=== PATIENT | male | born 1965 | race Caucasian/White ===

== ENCOUNTER 2018-11-21 11:30 | Day surgery (SDC) | payer OTHER ==
--- NOTE | 2018-11-21 08:50 | HP ---
DATE OF SURGERY: 11/21/2018 HISTORY OF PRESENT ILLNESS: The patient is a 53 year-old with no prior abdominal surgery, increasing bulge umbilical area, increased pain worse with picking up things. He desires repair of his hernia. PAST MEDICAL HISTORY: He denies any chronic illnesses. PAST SURGICAL HISTORY: Pin for broken finger in the past. MEDICATIONS: None. ALLERGIES: NKDA. FAMILY HISTORY: Negative. SOCIAL HISTORY: No smoking. Social alcohol use denies abuse. REVIEW OF SYSTEMS: Twelve systems reviewed. No chest pain or palpitations other systems negative or noncontributory as above and per preadmission questionnaire. PHYSICAL EXAMINATION: GENERAL: No acute distress. HEENT: Sclerae nonicteric. NECK: No JVD. CHEST: Equal excursion, nonlabored breathing. CVS: Regular rate and rhythm. ABDOMEN: Soft. No peritoneal signs. He does have what seems to be an incarcerated umbilical area hernia that needs repair. EXTREMITIES: No significant edema. NEURO: Alert, oriented, moving extremities symmetrically. No gross motor deficits noted. RECTAL: Deferred timed to endoscopy exam. IMPRESSION: Incarcerated umbilical area hernia in need of repair. Risks and benefits explained in detail but not limited to bleeding or infection, risk of bleeding, infection, risk of hematoma or seroma formation, risk of ingrown hair or suture reaction, risk if the mesh became infected likely would need to be removed, general of anesthesia, deep venous thrombosis, pulmonary embolism, pneumonia, remote risk of fracture or failure possibly creating issue with the viscera or other structures possibly requiring other procedures, ongoing morbidity, general risk of aches, pains, burning or numbness possibly fdc or chronic in nature. Overall risk of hernia recurrence. Small risk of scar formation, adhesion or obstruction down the road but not limited to. He understands all the above but not limited to, will proceed with open repair of incarcerated umbilical hernia repair with mesh as an outpatient.
[~2018-11-21 11:30] MED LIST: Lactated Ringers 1,000 ML IV ONE; Lactated Ringers 1,000 ML IV SCH; Sensorcaine 0.25% 10 ML ONE
[2018-11-21] MEDS ORDERED: TORAdol 30 mg Injection IV ONE (11:31)
[2018-11-21] MEDS ORDERED: Decadron 4 MG INJ IV ONE (11:31)
[2018-11-21] MEDS ORDERED: DIPRIVAN 200 MG/20 ML IV ONE (11:31)
[2018-11-21] MEDS ORDERED: BRIDION 200MG/2ML IV ONE (11:31)
[2018-11-21] MEDS ORDERED: Quelicin Fliptop 200 MG/10 ML IV ONE (11:31)
[2018-11-21] MEDS ORDERED: Zemuron 100 MG/10 ML IV ONE (11:31)
[2018-11-21] MEDS ORDERED: Zofran 4 MG/2 ML VIAL IV ONE (11:31)
[2018-11-21] MEDS ORDERED: SUBLIMAZE 100 MCG/2 ML IV ONE (11:31)
[2018-11-21] MEDS ORDERED: CEFAZOLIN 2 GM-D5W BAG** 2 GM/50 ML ML IV ONE ×2 (13:05→13:07)
[2018-11-21] MEDS ORDERED: SUBLIMAZE 100 MCG/2 ML ONE (14:52)
[2018-11-21] MEDS ORDERED: DILAUDID 2 MG INJECTION ONE (15:04)
--- NOTE | 2018-11-21 15:26 | OP ---
SURGERY DATE/TIME: 11/21/2018 1403 PREOPERATIVE DIAGNOSIS: Incarcerated umbilical area hernia. POSTOPERATIVE DIAGNOSIS: Incarcerated umbilical hernia. PROCEDURE: Repair of incarcerated umbilical area ventral hernia with mesh. SURGEON: Dr. Josh Dillard. ANESTHESIA: General. ESTIMATED BLOOD LOSS: Minimal. INDICATIONS: As noted above. Risks and benefits explained in detail and not limited to and consent obtained. The procedure is explained in detail but not limited to and consent was obtained. DESCRIPTION OF PROCEDURE AND FINDINGS: The patient is taken to the operating room. General anesthesia induced. The abdomen is prepped and draped in usual sterile fashion. After official time out and no disagreement with planned procedure, the site had been confirmed in the preoperative holding area. Prepped and draped in usual sterile fashion. A transverse incision made. Dissection carried down circumferentially around this incarcerated preperitoneal fat that is stuck to his hernia. It was carefully freed from the surrounding tissue. Dissected down level of the fascia reduced back down in the abdomen after incarcerated attachments were released. It was reduced back down in the abdomen. Carefully the fascia was cleared circumferentially on retrorectal space. Size [address] mesh most appropriate mesh carefully inserted, straps pulled upward in a flat tension free fashion and secured 1 cm apart around the edges with interrupted 0 Prolene in a tension-free manner. Once this was accomplished the attenuated tissue and fascia was then closed over the top of the mesh with 0 PDS staying away from the rest of the wound. Good hemostasis noted. The subumbilical tissue and subcu was tacked down to the level of the fascia keeping the umbilicus inverted with 3-0 Vicryl. Deep superficial subcu closed with 3-0 Vicryl. Skin closed with 4-0 Vicryl. Steri-Strips and sterile dressing applied. Patient tolerated the procedure well. There were no immediate complications. Findings discussed with the family out in the waiting area.
[2018-11-21 15:30] VITALS: O2SAT 94
[2018-11-21 15:50] VITALS: PULSE 81
[2018-11-21 15:52] VITALS: BP 157/88
== END 2018-11-21 16:07 | disposition home or self-care (01) ==
LOC: SDC 11:30
PROVIDERS: ATTEND Surgery
DX: K42.0 Umbilical hernia with obstruction, without gangrene (principal)
CPT/HCPCS: 49587; C1781; J0330; J0690; J1100; J1170; J1885; J2405; J2704; J3010; L0625

== ENCOUNTER 2018-12-04 17:16 | Emergency (ER) | payer OTHER ==
[2018-12-04] MEDS ORDERED: ANTIVERT 25 MG PO ONE ×2 (17:40→19:36)
--- NOTE | 2018-12-04 17:42 | ERPHSYRPT ---
- History of Present Illness Time Seen by Provider: 12/04/18 17:40 Source: patient Exam Limitations: clinical condition Patient Subjective Stated Complaint: PT states "Last night I started having a few dizzy spells but today they are getting to be more consistent. I am getting nauseated as well as the room spinning." Triage Nursing Assessment: Pt presented through the front door, alert and oriented X 3, skin pwd. Pt ambulates with an upright steady gait, able to speak in clear full sentences. PT in no apparent respiratory distress. Physician History: PATIENT COMPLAINS OF DIZZINESS SINCE YESTERDAY EXACERBATION UPON MOTION OF HEAD AND NECK. DENIES HEADACHE, BLURRED VISION OR SLURRED SPEECH. HAS ASSOCIATED NAUSEA. DENIES EMESIS, NUMBNESS, TINGLING OR WEAKNESS IN EXTREMITIES. Timing/Duration: yesterday Severity: moderate Character of Deficits: none, other (INTERMITTENT DIZZINESS UPON MOTION OF HEAD) Deficits: no difficulties Baseline/Normal Cognition: alert oriented x 3 Current Cognition: alert oriented x 3 Baseline Gait: walks w/o assistance Associated Symptoms: nausea Allergies/Adverse Reactions: No Known Drug Allergies Allergy (Verified 11/21/18 11:43) Hx Tetanus, Diphtheria Vaccination/Date Given: No Hx Influenza Vaccination/Date Given: No Hx Pneumococcal Vaccination/Date Given: No Immunizations Up to Date: Yes - Review of Systems Constitutional: No Fever, No Chills Eyes: No Symptoms Ears, Nose, & Throat: No Symptoms Respiratory: No Symptoms, No Cough, No Dyspnea Cardiac: No Symptoms, No Chest Pain, No Edema, No Syncope Abdominal/Gastrointestinal: Nausea, No Abdominal Pain, No Vomiting, No Diarrhea Genitourinary Symptoms: No Symptoms, No Dysuria Musculoskeletal: No Symptoms, No Back Pain, No Neck Pain Skin: No Symptoms, No Rash Neurological: Dizziness, No Focal Weakness, No Sensory Changes Psychological: No Symptoms Endocrine: No Symptoms Hematologic/Lymphatic: No Symptoms Immunological/Allergic: No Symptoms All Other Systems: Reviewed and Negative - Past Medical History Pertinent Past Medical History: No Neurological History: No Pertinent History ENT History: No Pertinent History Cardiac History: No Pertinent History Respiratory History: No Pertinent History Endocrine Medical History: No Pertinent History Musculoskeletal History: No Pertinent History GI Medical History: No Pertinent History History: No Pertinent History Psycho-Social History: No Pertinent History Male Reproductive Disorders: No Pertinent History - Past Surgical History Past Surgical History: Yes Neuro Surgical History: No Pertinent History Cardiac: No Pertinent History Respiratory: No Pertinent History Gastrointestinal: No Pertinent History Genitourinary: No Pertinent History Musculoskeletal: Other Male Surgical History: No Pertinent History Other Surgical History: pin placement and removal in finger. hernia surgery - Social History Smoking Status: Never smoker Exposure to second hand smoke: No Drug Use: none Patient Lives Alone: No - Nursing Vital Signs Nursing Vital Signs: Initial Vital Signs Temperature 98.2 F 12/04/18 17:23 Pulse Rate 89 12/04/18 17:23 Respiratory Rate 18 12/04/18 17:23 Blood Pressure 174/95 12/04/18 17:23 O2 Sat by Pulse Oximetry 98 12/04/18 17:23 Pain Scale Pain Intensity 0 - Physical Exam General Appearance: no apparent distress, alert Eye Exam: bilateral eye: normal inspection, PERRL, EOMI Ears, Nose, Throat Exam: normal ENT inspection, moist mucous membranes Neck Exam: normal inspection, non-tender, supple Respiratory: normal breath sounds, lungs clear, airway intact, No respiratory distress Cardiovascular: regular rate/rhythm, No edema Gastrointestinal: soft, No tenderness, No distention Back Exam: normal inspection Extremity Exam: normal inspection, No pedal edema Peripheral Pulses: carotid (R): 2+, carotid (L): 2+, femoral (R): 2+, femoral (L ): 2+, dorsalis-pedis (R): 2+, dorsalis-pedis (L): 2+ 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, 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: normal hearing, normal speech, PERRL, tongue midline Coordination/Gait: normal finger to nose, normal gait DTR: bicep (R): 2+, bicep (L): 2+, tricep (R): 2+, tricep (L): 2+, knee (R): 2+ , knee (L): 2+, ankle (R): 2+, ankle (L): 2+ Skin Exam: normal color, warm, dry, No rash SpO2 Interpretation: normal SpO2: 98 - Course EKG Interpreted by Me: RATE, Sinus Rhythm, NORMAL AXIS - CT Exams Head CT Interpretation: Discussed w/radiologist, No/Intracranial Hemorrhag Ordered Tests: Active Orders 24 hr Category Date Time 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 12/04/18 17:41 Active EKG-ER Only STAT Care 12/04/18 17:40 Active HEAD WITHOUT CONTRAST [CT] Stat Exams 12/04/18 17:41 Taken BMP Stat Lab 12/04/18 18:08 Completed CBC W DIFF Stat Lab 12/04/18 18:08 Completed MAGNESIUM Stat Lab 12/04/18 18:08 Completed TROPONIN Q3H Lab 12/04/18 18:08 Completed TROPONIN Q3H Lab 12/04/18 20:45 Ordered TROPONIN Q3H Lab 12/04/18 23:45 Ordered TROPONIN Q3H Lab 12/05/18 02:45 Ordered TROPONIN Q3H Lab 12/05/18 05:45 Ordered Medication Summary Generic Name Dose Route Start Last Admin Trade Name Freq PRN Reason Stop Dose Admin Sodium Chloride 1,000 mls @ 50 mls/hr 12/04/18 17:45 12/04/18 18:11 Sodium Chloride 0.9% 1000 Ml IV 01/03/19 17:44 50 mls/hr .Q20H GAIL Administration Discontinued Medications Generic Name Dose Route Start Last Admin Trade Name Freq PRN Reason Stop Dose Admin Meclizine HCl 25 mg 12/04/18 17:40 12/04/18 18:11 Antivert 25 Mg PO 12/04/18 17:41 25 mg STAT ONE Administration Meclizine HCl Confirm 12/04/18 18:09 Antivert 25 Mg Administered 12/04/18 18:10 Dose 25 mg .ROUTE .STK-MED ONE Meclizine HCl 25 mg 12/04/18 19:36 12/04/18 20:26 Antivert 25 Mg PO 12/04/18 19:37 25 mg STAT ONE Administration Meclizine HCl Confirm 12/04/18 20:24 Antivert 25 Mg Administered 12/04/18 20:25 Dose 25 mg .ROUTE .STK-MED ONE Ondansetron HCl 4 mg 12/04/18 18:33 12/04/18 18:38 Zofran 4 Mg/2 Ml Vial IV 12/04/18 18:34 4 mg STAT ONE Administration Ondansetron HCl Confirm 12/04/18 18:37 Zofran 4 Mg/2 Ml Vial Administered 12/04/18 18:38 Dose 4 mg .ROUTE .STK-MED ONE Ondansetron HCl 4 mg 12/04/18 19:36 12/04/18 20:25 Zofran Odt 4 Mg PO 12/04/18 19:37 4 mg STAT ONE Administration Ondansetron HCl Confirm 12/04/18 20:24 Zofran Odt 4 Mg Administered 12/04/18 20:25 Dose 4 mg .ROUTE .STK-MED ONE Lab/Rad Data: Laboratory Result Diagrams 12/04/18 18:08 12/04/18 18:08 Laboratory Results 12/04/18 12/04/18 12/04/18 Range/Units 18:08 18:08 18:08 WBC 10.1 (4.0-10.5) K/mm3 RBC 4.99 (4.1-5.6) M/mm3 Hgb 15.3 (12.5-18.0) gm/dl Hct 44.7 (42-50) % MCV 89.6 (78-100) fl MCH 30.7 (26-32) pg MCHC 34.2 (32-36) g/dl RDW 14.4 H (11.5-14.0) % Plt Count 246 (150-450) K/mm3 MPV 10.4 H (6-9.5) fl Gran % 78.7 H (36.0-66.0) % Eos # (Auto) 0.08 (0-0.5) Absolute Lymphs (auto) 1.46 (1.0-4.6) Absolute Monos (auto) 0.57 (0.0-1.3) Lymphocytes % 14.4 L (24.0-44.0) % Monocytes % 5.6 (0.0-12.0) % Eosinophils % 0.8 (0.00-5.0) % Basophils % 0.5 (0.0-0.4) % Absolute Granulocytes 7.98 H (1.4-6.9) Basophils # 0.05 (0-0.4) Sodium 137 (137-145) mmol/L Potassium 4.2 (3.5-5.1) mmol/L Chloride 102 (98-107) mmol/L Carbon Dioxide 25 (22-30) mmol/L Anion Gap 14.3 (5-15) MEQ/L BUN 16 (9-20) mg/dL Creatinine 1.01 (0.66-1.25) mg/dL Estimated GFR > 60.0 ML/MIN Glucose 125 H (74-106) mg/dL Calcium 8.9 (8.4-10.2) mg/dL Magnesium 1.7 (1.6-2.3) mg/dL Troponin I < 0.012 (0.000-0.034) ng/mL - Progress Progress: improved Progress Note: 12/04/18 19:22 IV NORMAL SALINE 100ML/HR, ZOFRAN 4MG IV, ANTIVERT 25MG ORALLY Counseled pt/family regarding: lab results, diagnosis, rad results - Departure Departure Disposition: Home Clinical Impression: ACUTE LABYRINTHITIS Condition: Stable Critical Care Time: No Referrals: BREANA BOYER MD [Primary Care Provider] - Additional Instructions: FOLLOWUP WITH YOUR PRIMARY CARE PROVIDER IN 1 WEEK. ANTIVERT 25MG EVERY 8 HOURS FOR 1 WEEK. ZOFRAN 4MG EVERY 4 HOURS FOR NAUSEA NEEDED. DRINK PLENTY OF FLUIDS. Prescriptions: Ondansetron ODT 4 MG [Zofran Odt 4 mg] 4 mg PO Q6H PRN PRN #10 tab.rapdis PRN Reason: Dizziness Meclizine HCl 25 mg [Antivert 25 mg] 25 mg PO TID #21 tablet
[2018-12-04] MEDS ORDERED: Sodium Chloride 0.9% 1000 ML 1,000 ML IV SCH (17:45)
[2018-12-04] MEDS ORDERED: ANTIVERT 25 MG ONE ×2 (18:09→20:24)
[2018-12-04] MEDS ORDERED: Sodium Chloride 0.9% 1000 ML 1,000 ML ONE (18:09)
[2018-12-04 18:13] LABS: BASOPHIL % 0.5 % (0.0-0.4); Basophil (Absolute #) 0.05 (0-0.4); Eosinophil % 0.8 % (0.00-5.0); Eosinophil (Absolute #) 0.08 (0-0.5); Granulocyte Absolute (ANC) 7.98 (1.4-6.9); Granulocytes % 78.7 % (36.0-66.0); Hematocrit 44.7 % (42-50); Hemoglobin 15.3 gm/dl (12.5-18.0); Lymphocyte (Absolute #) 1.46 (1.0-4.6); Lymphocytes % 14.4 % (24.0-44.0); Mean Cell Volume 89.6 fl (78-100); Mean Corpuscular Hemoglobin 30.7 pg (26-32); Mean Corpuscular Hgb Concent. 34.2 g/dl (32-36); Mean Platelet Volume 10.4 fl (6-9.5); Monocyte (Absolute #) 0.57 (0.0-1.3); Monocytes % 5.6 % (0.0-12.0); Platelet Count 246 K/mm3 (150-450); Red Blood Count 4.99 M/mm3 (4.1-5.6); Red Cell Distribution Width 14.4 % (11.5-14.0); White Blood Count 10.1 K/mm3 (4.0-10.5)
[2018-12-04 18:24] LABS: ANION GAP 14.3 MEQ/L (5-15); BLOOD UREA NITROGEN 16 mg/dL (9-20); CHLORIDE 102 mmol/L (98-107); Calcium 8.9 mg/dL (8.4-10.2); Carbon Dioxide 25 mmol/L (22-30); Creatinine 1 1.01 mg/dL (0.66-1.25); Glucose 125 mg/dL (74-106); MAGNESIUM 1.7 mg/dL (1.6-2.3); Potassium 4.2 mmol/L (3.5-5.1); SODIUM 137 mmol/L (137-145)
[2018-12-04] MEDS ORDERED: Zofran 4 MG/2 ML VIAL IV ONE (18:33)
[2018-12-04] MEDS ORDERED: Zofran 4 MG/2 ML VIAL ONE (18:37)
[2018-12-04] MEDS ORDERED: ZOFRAN ODT 4 MG PO ONE (19:36)
[2018-12-04] MEDS ORDERED: ZOFRAN ODT 4 MG ONE (20:24)
[2018-12-04 20:27] VITALS: BP 154/91; PULSE 89
[2018-12-04 20:29] VITALS: O2SAT 98
--- NOTE | 2018-12-05 09:40 | XRAY ---
Exam: CT of the head without IV contrast from 12/04/2018. CTDI: 69.25 Comparison: None. Indication: 53-year-old male with history of dizziness with nausea for the past 2 days. Technique: Non-IV contrast axial images were obtained through the brain. Reconstructed coronal and sagittal images were created and reviewed. Findings: The ventricles appear of normal size and configuration. No focal mass effect or midline shift is seen. No acute intracranial bleed or abnormal extra-axial fluid collection is seen. The wynne matter-white matter interfaces appear unremarkable. No moderate or large acute territorial infarct is seen. The cortical sulci and basilar cisterns appear within normal limits for age. The calvarium of the skull reveals no fracture or other significant focal bone lesion. Some minimal nonspecific mucosal thickening is seen within the left ethmoid sinus. Otherwise, the visualized paranasal sinuses appear clear without air-fluid levels. The mastoid air cells are well pneumatized. The middle ear cavities appear unremarkable. Impression: 1. No acute intracranial bleed or other acute intracranial process is seen.
== END 2018-12-04 20:38 | disposition home or self-care (01) ==
LOC: ED 17:16
DX: H83.09 Labyrinthitis, unspecified ear (principal); R42 Dizziness and giddiness; R11.0 Nausea
CPT/HCPCS: 36000; 36415; 70450; 80048; 83735; 84484; 85025; 93005; 93041; 96360; 96361; 96374; 99284; J2405; Q0162; A9270-GY